=== PATIENT | male | born 1990 | race Hispanic/Latino ===

== ENCOUNTER 2021-04-19 13:45 | Emergency (ER) | payer SELFPAY ==
--- NOTE | 2021-04-19 14:05 | EDM.PDOC ---
ED HPI GENERAL MEDICAL PROBLEM - General Chief Complaint: Laceration Stated Complaint: LACERATION TO LEFT HAND Time Seen by Provider: 04/19/21 13:45 Source of Information: Reports: Patient History Limitations: Reports: No Limitations - History of Present Illness INITIAL COMMENTS - FREE TEXT/NARRATIVE: Patient presents here to the ER with a 3-day-old laceration to the top of his left hand after falling on some glass he wanted to come get it checked out to make sure it is not infected he has been washing it daily with peroxide and warm soapy water. He denies any pain loss of range of motion or painful range of motion he states he has been doing fine he has no other complaints at this time. Tetanus is up-to-date he was given in February in [place]. Duration: Day(s): Associated Symptoms: Reports: No Other Symptoms Review of Systems - Review of Systems Review Of Systems: See Below Constitutional: Reports: No Symptoms Eyes: Reports: No Symptoms Ears: Reports: No Symptoms Respiratory: Reports: No Symptoms Cardiovascular: Reports: No Symptoms Musculoskeletal: Reports: No Symptoms Skin: Reports: Other (See HPI) Neurological: Reports: No Symptoms ED EXAM, GENERAL - Physical Exam Exam: See Below Exam Limited By: No Limitations General Appearance: Alert, WD/WN, No Apparent Distress Ears: Hearing Grossly Normal Neck: Normal Inspection, Full Range of Motion Respiratory/Chest: No Respiratory Distress Extremities: Normal Range of Motion, Non-Tender, Normal Capillary Refill, Other (Exam to the left hand patient is neurovascular intact has strong radius and ulna pulses normal cap refill he has positive FDS FDP normal extension of the phalanges equal distiller bilateral there is a noted half centimeter linear laceration across the fourth digit on the pdorsal aspect between the PIP an). No: Normal Inspection, Slow Capillary Refill, Joint Swelling, Limited Range of Motion Neurological: Alert, Oriented, CN II-XII Intact, Normal Cognition, Normal Gait, Normal Reflexes, No Motor/Sensory Deficits Psychiatric: Normal Affect, Normal Mood Skin Exam: Warm, Dry, Intact, Normal Color, No Rash Course - Vital Signs Text/Narrative:: Patient was educated on wound care and there is nothing needed to be done as far as stitches at this moment he was educated to keep the area clean with warm hot soapy water do not apply any more hydrogen peroxide and apply Neosporin to the area at least twice a day for the next week he was instructed to follow-up with a primary care provider next 24 to 48 hours for recheck Departure - Departure Time of Disposition: 14:15 Disposition: Home, Self-Care 01 Condition: Good Clinical Impression: Laceration of hand - Discharge Information *PRESCRIPTION DRUG MONITORING PROGRAM REVIEWED*: No *COPY OF PRESCRIPTION DRUG MONITORING REPORT IN PATIENT GAUDENCIO: No Instructions: Laceration Care, Adult, [id number] Forms: ED Department Discharge Additional Instructions: Keep the area clean wash it with warm soapy water at least twice a day apply Neosporin to the area at least 3 times a day for the next week Follow-up with your primary care provider in the next 24 to 48 hours for recheck return to the emergency room if anything changes or gets worse - Problem List & Annotations (1) Laceration of hand SNOMED Code(s): 415568557 Code(s): S61.419A - LACERATION WITHOUT FOREIGN BODY OF UNSP HAND, INIT ENCNTR Status: Acute
== END 2021-04-19 14:06 | disposition home or self-care (01) ==
LOC: VM.ED 13:45
DX: S61.412A Laceration without foreign body of left hand, initial encounter (principal); W25.XXXA Contact with sharp glass, initial encounter
CPT/HCPCS: 99282; 99283